=== PATIENT | male | born 1980 | race Caucasian/White ===

== ENCOUNTER 2021-02-12 18:25 | Inpatient (IN) | payer MEDICAID, OTHER ==
[~2021-02-12] VITALS: Ht 177.8 cm; Wt 71.3 kg
[2021-02-12] MEDS ORDERED: SODIUM CHLORIDE 0.9% 1000ML BAG (SEPSIS BOLUS) IV ONE (21:15)
[2021-02-12 21:30] LABS: BASOPHILS % 0.8 % (0.0-2.0); EOSINOPHILS % 1.2 % (0.0-5.0); HEMOGLOBIN. 12.3 g/dL (14.0-18.0); LYMPHOCYTES % 15.9 % (20.0-50.0); MEAN CORPUSCULAR HEMOGLOBIN 26.6 pg (28.0-32.0); MEAN CORPUSCULAR VOLUME 80.2 fL (80.0-94.0); MEAN PLATELET VOLUME 8.1 fl (7.4-10.4); MONOCYTES % 6.9 % (2.0-8.0); NEUTROPHILS % 75.2 % (40.0-76.0); PLATELET 385 x1000/uL (130-400); RED BLOOD CELL COUNT 4.62 mill/uL (4.7-6.1); RED CELL DISTRIBUTION WIDTH 20.1 % (11.6-14.6)
[2021-02-12 21:34] LABS: CHLORIDE 105 mEq/L (98-107); INR 1.3
[2021-02-12] MEDS ORDERED: ASPIRIN 81MG TABLET PO ONE (22:15)
[2021-02-12] MEDS ORDERED: POTASSIUM CHLORIDE 20MEQ TABLET SR PO ONE (22:15)
[2021-02-12] MEDS ORDERED: AZITHROMYCIN 500 MG in DEXT 5% WATER 250 ML IV ONE (22:30)
[2021-02-12] MEDS ORDERED: CEFTRIAXONE 1 G PREMIX 50 ML IV ONE (22:30)
[2021-02-13] MEDS ORDERED: ACETAMINOPHEN 325MG TABLET PO PRN (01:45)
[2021-02-13] MEDS ORDERED: MAGNESIUM/ALUMINUM HYDROXIDE/SIMETHICONE 30ML UDC PO PRN (01:45)
[2021-02-13] MEDS ORDERED: LORAZEPAM 2MG/ML CPJ IV PRN (01:45)
[2021-02-13] MEDS ORDERED: ONDANSETRON HCL 4MG/2ML INJ IV PRN (01:45)
[2021-02-13] MEDS: ENOXAPARIN 40MG/0.4ML SYR SUBCUT SCH (04:38)
[2021-02-13] MEDS: DEXT 5%/0.45% NACL 1000ML 1,000 ML IV SCH (04:38)
[2021-02-13] MEDS: LEVOFLOXACIN 500MG PREMIX 100 ML IV SCH (08:58)
[2021-02-13 10:06] VITALS: BP 107/65
[2021-02-13] MEDS: PANTOPRAZOLE 40MG DR TABLET PO SCH (11:30)
[2021-02-13] MEDS: METOPROLOL TARTRATE 25MG TABLET PO SCH ×2 (11:31→21:02)
[2021-02-13 12:00] VITALS: BP 117/72
[2021-02-13 16:00] VITALS: BP 109/70
[2021-02-13 20:00] VITALS: BP 125/79
[2021-02-13] MEDS: LEVETIRACETAM 500MG TABLET PO SCH (21:02)
[2021-02-14] VITALS: BP 123/80
[2021-02-14 04:00] VITALS: BP 108/63
[2021-02-14] MEDS: PANTOPRAZOLE 40MG DR TABLET PO SCH (06:40)
[2021-02-14 07:08] LABS: BASOPHILS % 0.7 % (0.0-2.0); EOSINOPHILS % 3.1 % (0.0-5.0); HEMATOCRIT. 33.3 % (42.0-52.0); HEMOGLOBIN. 11.1 g/dL (14.0-18.0); LYMPHOCYTES % 30.2 % (20.0-50.0); MEAN CORPUSCULAR HEMOGLOBIN 26.8 pg (28.0-32.0); MEAN CORPUSCULAR VOLUME 80.5 fL (80.0-94.0); MEAN PLATELET VOLUME 8.3 fl (7.4-10.4); MONOCYTES % 8.5 % (2.0-8.0); NEUTROPHILS % 57.5 % (40.0-76.0); PLATELET 351 x1000/uL (130-400); RED BLOOD CELL COUNT 4.13 mill/uL (4.7-6.1); RED CELL DISTRIBUTION WIDTH 20.1 % (11.6-14.6)
[2021-02-14 07:26] LABS: CHLORIDE 109 mEq/L (98-107)
[2021-02-14 08:00] VITALS: BP 108/65
[2021-02-14] MEDS: METOPROLOL TARTRATE 25MG TABLET PO SCH ×2 (09:00→21:44)
[2021-02-14] MEDS ORDERED: POTASSIUM CHLORIDE 20MEQ TABLET SR PO NR (09:15)
[2021-02-14] MEDS: ENOXAPARIN 40MG/0.4ML SYR SUBCUT SCH (09:54)
[2021-02-14] MEDS: LEVETIRACETAM 500MG TABLET PO SCH ×2 (09:54→21:44)
[2021-02-14 12:00] VITALS: BP 102/57
[2021-02-14] MEDS: DEXT 5%/0.45% NACL 1000ML 1,000 ML IV SCH (12:39)
[2021-02-14] MEDS: LEVOFLOXACIN 500MG PREMIX 100 ML IV SCH (13:49)
[2021-02-14 16:00] VITALS: BP 114/71
[2021-02-14] MEDS: METOCLOPRAMIDE HCL 10MG/2ML VIAL IV SCH (17:26)
[2021-02-14 20:00] VITALS: BP 101/66
[2021-02-14] MEDS: FAMOTIDINE 20MG TABLET PO SCH (21:45)
[2021-02-15] VITALS: BP 116/72
[2021-02-15 04:00] VITALS: BP 116/68
[2021-02-15] MEDS: DEXT 5%/0.45% NACL 1000ML 1,000 ML IV SCH (05:00)
[2021-02-15] MEDS: METOCLOPRAMIDE HCL 10MG/2ML VIAL IV SCH ×3 (05:47→11:59)
[2021-02-15 08:00] VITALS: BP 101/56
[2021-02-15] MEDS: METOPROLOL TARTRATE 25MG TABLET PO SCH (08:42)
[2021-02-15] MEDS: ENOXAPARIN 40MG/0.4ML SYR SUBCUT SCH (08:49)
[2021-02-15] MEDS: FAMOTIDINE 20MG TABLET PO SCH (08:49)
[2021-02-15] MEDS: LEVETIRACETAM 500MG TABLET PO SCH (08:50)
[2021-02-15] MEDS ORDERED: LEVOFLOXACIN 500MG TABLET PO SCH (11:00)
[2021-02-15 12:00] VITALS: BP 107/62
[2021-02-15 13:27] VITALS: BP 107/62
== END 2021-02-15 14:55 | disposition home or self-care (01) | DRG 252 ==
LOC: ER 18:25 → 7WST 22:50 → EDBEDREQ 22:56 → EDBEDREQTM 22:56 → EDBEDREQSVC 22:56 → ENRESERV 02-13 07:29 → 5WST 02-14 00:33
PROVIDERS: ADMIT Hospitalist; ATTEND Hospitalist
DX: K94.23 Gastrostomy malfunction (principal); E44.1 Mild protein-calorie malnutrition; Z86.74 Personal history of sudden cardiac arrest; G40.909 Epilepsy, unspecified, not intractable, without status epilepticus; D64.9 Anemia, unspecified; E87.6 Hypokalemia; Z20.822 Contact with and (suspected) exposure to COVID-19; K29.70 Gastritis, unspecified, without bleeding; K44.9 Diaphragmatic hernia without obstruction or gangrene; R62.7 Adult failure to thrive; Z86.16 Personal history of COVID-19; G80.9 Cerebral palsy, unspecified; Z68.22 Body mass index [BMI] 22.0-22.9, adult
CPT/HCPCS: 36415; 71045; 80053; 82962; 83605; 83880; 84145; 84484; 85025; 93005; 99285; J0456; J1650; J1956; J2765; J7030; J7060; U0003; A4315